=== PATIENT | male | born 1975 | race Two or more races ===

== ENCOUNTER 2022-06-07 19:52 | Inpatient (IN) | payer OTHER ==
[~2022-06-07] VITALS: Ht 165.1 cm; Wt 80.3 kg
[2022-06-07] MEDS ORDERED: IV NORMAL SALINE 1000 ML BAG IV ONE (20:15)
[2022-06-07 20:35] LABS: HEMATOCRIT 44.9 % (36.7-47.1); MEAN CORPUSCULAR HEMOGLOBIN 33.8 uug (23.8-33.4); MEAN CORPUSCULAR VOLUME 97.6 fL (73.0-96.2); PLATELET COUNT (AUTO) 167 K/uL (152-348)
[2022-06-07] MEDS ORDERED: KETOROLAC TROMETHAMINE 15 MG INJ IVP ONE (20:45)
[2022-06-07] MEDS ORDERED: KETOROLAC TROMETHAMINE 15 MG INJ ONE (20:48)
[2022-06-07 20:53] LABS: ALANINE AMINOTRANSFERASE 142 U/L (16-63); ALKALINE PHOSPHATASE 89 U/L (50-136); ASPARTATE AMINOTRANSFERASE 69 U/L (15-37); BILIRUBIN,TOTAL 1.4 mg/dL (0.2-1.0); CARBON DIOXIDE 22 mmol/L (21-32); CHLORIDE 101 mmol/L (98-107); GLUCOSE 101 mg/dL (74-106); POTASSIUM 3.9 mmol/L (3.5-5.1); TOTAL PROTEIN, SERUM 7.8 g/dL (6.4-8.2); UREA NITROGEN, BLOOD 15 mg/dL (7-18)
[2022-06-07 20:56] LABS: *BILIRUBIN,URIN NEGATIVE (NEGATIVE); *BLOOD, URINE NEGATIVE (NEGATIVE); *CLARITY,URINE CLEAR (CLEAR); *COLOR,URINE YELLOW (YELLOW); *KETONES,URINE 2+ (NEGATIVE); *UROBILINOGEN,URINE 0.2 E.U./dl (NORMAL); LEUKOCYTE ESTERASE ,URINE TRACE (NEGATIVE); NITRITE, URINE NEGATIVE (NEGATIVE); UGLUCOSE NEGATIVE (NEGATIVE)
[2022-06-07 21:03] LABS: ETHANOL < 3 MG/DL (0-0)
[2022-06-07 21:12] LABS: *AMPHETAMINE, URINE NEGATIVE (NEGATIVE); *CANNABINOID, URINE NEGATIVE (NEGATIVE); *COCCAINE, URINE NEGATIVE (NEGATIVE); *PHENCYCLIDINE SCREEN,URINE NEGATIVE (NEGATIVE)
[2022-06-07] MEDS ORDERED: IOHEXOL 300MG/ML 100 ML INFUS..BTL ONE (21:24)
[2022-06-07] MEDS ORDERED: SWABABLE VALVE TRANSFER SET EA MC ONE (21:24)
[2022-06-07] MEDS ORDERED: IV NORMAL SALINE 250 ML IV ONE (21:24)
[2022-06-07 21:34] LABS: BACTERIA,URINE FEW /HPF (NONE SEEN); RBC,URINE NONE SEEN /HPF (0-3); SQUAMOUS EPITHELIAL CELL,UR FEW /HPF (NONE SEEN); WBC,URINE 0-3 /HPF (0-3)
--- NOTE | 2022-06-07 22:25 | NUR ---
Patient is resting comfortably in bed.
--- NOTE | 2022-06-07 22:53 | NUR ---
Called [facility] for panel call. Dr. Adin Summers radiation officer.
[2022-06-07] MEDS ORDERED: METOCLOPRAMIDE HCL 10 MG/2 ML VIAL ONE (23:41)
[2022-06-07] MEDS ORDERED: MORPHINE SULFATE 4 MG/1 ML DISP.SYRIN ONE (23:42)
[2022-06-07] MEDS ORDERED: IV NORMAL SALINE 500 ML BAG IV ONE (23:45)
[2022-06-07] MEDS ORDERED: METOCLOPRAMIDE HCL 10 MG/2 ML VIAL IV ONE (23:45)
[2022-06-07] MEDS ORDERED: MORPHINE SULFATE 4 MG/1 ML DISP.SYRIN IV ONE (23:45)
--- NOTE | 2022-06-08 00:15 | NUR ---
Spoke to HANS Cheng. Patient assigned rm [id number], under care of HANS Wan.
[2022-06-08] MEDS ORDERED: ONDANSETRON 4 MG/2 ML VIAL IV PRN (01:15)
[2022-06-08] MEDS ORDERED: ACETAMINOPHEN 325 MG TABLET PO PRN (01:15)
--- NOTE | 2022-06-08 01:22 | NUR ---
Called third floor to give report and spoke to monitoring specialist, was told they would call back.
--- NOTE | 2022-06-08 01:37 | NUR ---
Report given to HANS Wan.
--- NOTE | 2022-06-08 02:30 | NUR ---
Pt rolled up to third floor via wheelchair. Hieu made aware of patient's arrival.
--- NOTE | 2022-06-08 02:30 | NUR ---
Pt. admitted to Med surg, under care of Dr. Varghese Belongs List completed, HANS Hagen made aware of patient's transfer.
[2022-06-08] MEDS: IV NS 1000 ML 1,000 ML IV SCH ×5 (02:43→23:41)
[2022-06-08 02:54] VITALS: BP 163/90
[2022-06-08] MEDS ORDERED: hydrALAZINE HCL 20 MG/1 ML VIAL IV PRN (03:00)
--- NOTE | 2022-06-08 03:10 | NUR ---
NSG: Pt. admitted with Dx: of pancreatitis to Med surg, under care of Dr. Varghese TO ROOM 303 via w/c. alert and oriented x3,ambulatory. ivhl on left fore arm gauge # 20 intact. ns ivf @ 150 cc/hr started. patient c/o abdominal pain 8/10 pain level. morphine IVP given via charge nurse, Melatonin 3mg po given x1 per md ordered. pt refused body check. call light w/in reach.
[2022-06-08] MEDS: MORPHINE SULFATE 2 MG/1 ML DISP.SYRIN IVP PRN ×2 (03:13→11:42)
[2022-06-08] MEDS: MELATONIN 3 MG TABLET PO SCH ×2 (03:25→20:41)
--- NOTE | 2022-06-08 03:30 | NUR ---
nsg: pt b/p 163/90 hr 96 hydralazine 10 mg ivp prn given via charge nurse. md fair.
[2022-06-08 04:00] VITALS: BP 138/78
[2022-06-08 07:23] LABS: LIPASE 133 U/L (73-393)
[2022-06-08] MEDS: DOCUSATE SODIUM 100 MG CAPSULE PO SCH ×2 (08:03→16:30)
[2022-06-08] MEDS: HEPARIN SODIUM,PORCINE 5,000 UNITS/ML VIAL SQ SCH ×2 (08:04→20:13)
[2022-06-08] MEDS ORDERED: IV NORMAL SALINE 500 ML IV ONE (11:15)
[2022-06-08 11:33] VITALS: BP 147/91
[2022-06-08 11:33] LABS: BILIRUBIN,DIRECT 0.2 mg/dL (0.0-0.2); BILIRUBIN,TOTAL 0.9 mg/dL (0.2-1.0); CREATININE 1.1 mg/dL (0.6-1.3); POTASSIUM 3.8 mmol/L (3.5-5.1); TOTAL PROTEIN, SERUM 6.7 g/dL (6.4-8.2)
[2022-06-08] MEDS: PANTOPRAZOLE SODIUM 40 MG VIAL IV SCH (11:41)
[2022-06-08 16:00] VITALS: BP 135/81
[2022-06-08 20:00] VITALS: BP 139/80
[2022-06-08] MEDS ORDERED: TRAZODONE 50 MG TABLET PO SCH (21:00)
--- NOTE | 2022-06-08 21:18 | NUR ---
IVF INFUSING ORDERED TO RIGHT AC #20 GAUGE. ALL NEEDS ATTENDED.
[2022-06-09] MEDS ORDERED: TRAZODONE 100 MG TABLET PO SCH (02:15)
[2022-06-09] MEDS ORDERED: TRAZODONE 100 MG TABLET PO ONE (02:30)
--- NOTE | 2022-06-09 03:00 | NUR ---
PATIENT REFUSING FOR IV TO BE INFUSED AT THIS TIME.
[2022-06-09] MEDS: IV NS 1000 ML 1,000 ML IV SCH ×2 (03:55→10:35)
[2022-06-09 06:38] LABS: HEMATOCRIT 44.7 % (36.7-47.1); MEAN CORPUSCULAR HEMOGLOBIN 33.6 uug (23.8-33.4); MEAN CORPUSCULAR VOLUME 98.9 fL (73.0-96.2); PLATELET COUNT (AUTO) 157 K/uL (152-348)
[2022-06-09 07:00] LABS: BILIRUBIN,DIRECT 0.3 mg/dL (0.0-0.2); BILIRUBIN,TOTAL 1.4 mg/dL (0.2-1.0); CREATININE 0.9 mg/dL (0.6-1.3); PHOSPHOROUS 2.4 mg/dL (2.5-4.9); POTASSIUM 3.8 mmol/L (3.5-5.1); TOTAL PROTEIN, SERUM 7.2 g/dL (6.4-8.2)
--- NOTE | 2022-06-09 08:00 | NUR ---
Received pt lying in bed awake, alert and oriented. On room air saturating at 96-98%. No complain of pain. Pt. with IV site on Right forearm g, 20 intact, refused IV fluids. On regular diet tolerated well. Vital signs stable
[2022-06-09] MEDS: PANTOPRAZOLE SODIUM 40 MG VIAL IV SCH (09:08)
[2022-06-09] MEDS: HEPARIN SODIUM,PORCINE 5,000 UNITS/ML VIAL SQ SCH (09:09)
[2022-06-09] MEDS: DOCUSATE SODIUM 100 MG CAPSULE PO SCH (09:09)
[2022-06-09 11:18] VITALS: BP 125/80
--- NOTE | 2022-06-09 11:44 | NUR ---
trazadone was not administered, timing was at night.
--- NOTE | 2022-06-09 12:15 | NUR ---
Seen and examined by Chang White NP, with orders made and carried out. Discharged order done
[2022-06-09] MEDS ORDERED: PANT40TA2 PO (12:20)
--- NOTE | 2022-06-09 12:30 | NUR ---
Patient for discharge remove IV catheter. Provided discharge summary and given instructions. Patient in stable condition, assisted patient going down the elevator ambulatory. Discharge at 1250H
== END 2022-06-09 12:50 | disposition home or self-care (01) | DRG 391 ==
LOC: ER 20:04 → MEDSURG3 06-08 02:11
PROVIDERS: ADMIT Internal Medicine; ATTEND Nurse Practitioner Acute Care
DX: K29.80 Duodenitis without bleeding (principal); K85.90 Acute pancreatitis without necrosis or infection, unspecified; K86.1 Other chronic pancreatitis; R74.01 Elevation of levels of liver transaminase levels; F41.9 Anxiety disorder, unspecified; Z79.899 Other long term (current) drug therapy; Z91.011 Allergy to milk products; Z91.012 Allergy to eggs; Z91.018 Allergy to other foods; Z87.442 Personal history of urinary calculi; F17.200 Nicotine dependence, unspecified, uncomplicated
CPT/HCPCS: 36415; 76700; 83690; 83735; 84100; 85025; 86140; A4663; C9113; G0378; G0480; J0360; J1644; J1885; J2270; J2765; J7040; Q9967